=== PATIENT | female | born 1945 | race Caucasian/White ===

== ENCOUNTER 2016-10-26 11:57 | Emergency (ER) | payer MEDICARE, OTHER ==
[2016-10-26 12:32] LABS: Hemoglobin 13.4 gm/dL (12.5-16.0); Mean Cell Volume 91.1 fl (78-100); Mean Corpuscular Hemoglobin 29.8 pg (27-31); Mean Corpuscular Hgb Conc 32.7 g/dl (32-36); Mean Platelet Volume 9.6 fl (6.0-9.5); Neutrophil # 4.2 K/mm3 (1.3-6.0); Neutrophil % 54.4 % (42-75.0); Platelet Count 232 K/mm3 (150-450); Red Cell Distribution Width 13.3 % (11.5-14.0); White Blood Count 7.7 K/mm3 (4.0-10.5)
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
[2016-10-26 12:45] LABS: Albumin * 3.7 gm/dl (3.4-5.0); Anion Gap 12.5 mmol/L (6.8-13.8); BUN/Creatinine Ratio 14.8 (9.0-21.6); Bilirubin, Total 0.5 mg/dL (0.0-1.1); Ca. Corrected For Albumin 9.1 mg/dL (8.4-10.2); Calcium * 9.2 mg/dL (7.9-10.9); Carbon Dioxide 27.9 mmol/L (24-32.6); Potassium 4.4 mmol/L (3.4-4.6); Total Protein 7.5 gm/dL (6.2-8.2)
[2016-10-26 12:53] VITALS: BP 143/71
[2016-10-26] MEDS ORDERED: DIATRIZOATE MEGLU/DIATRIZO SOD 30 ML BTL PO ONE (12:55)
[2016-10-26] MEDS ORDERED: DIATRIZOATE MEGLU/DIATRIZO SOD 30 ML BTL ONE (12:58)
--- OUTSIDE RECORDS SUMMARY | 2016-10-26 13:09 | XMS REPORT | Continuity of Care Document ---
:1945 Author Organization [facility] ([facility]) Address [address] [place] [address] Phone [phone] Care Team Providers Name Role Phone Marquez Nowak Primary Care Provider [phone] Source Comments This disclosure is being made pursuant to the Care Everywhere program, applicable federal and state laws, and may not contain all informaitonavailable regarding this patient.[facility] ([facility]) Active Allergies and Adverse Reactions No Known Allergies Current Medications Prescription Sig. Disp. Refills Start Date End Date Status Calcium Take 1 Tab by mouth Active Carbonate-Vit daily. D3-Min (CALCIUM-VITAMIN D) 600 mg calcium- 400 unit Tab ALPRAZolam 0.5 mg Take 0.5 mg by mouth at Active tablet bedtime as needed. zolpiDEM 10 mg Take 10 mg by mouth at Active tablet bedtime as needed. dicyclomine 10 mg Take 10 mg by mouth 2 Active capsule times daily. diphenoxylate-atrop Take 1 Tab by mouth 2 45 Tab 1 01/13/2012 Active ine (LOMOTIL) times daily as needed. 2.5-0.025 mg per Indications: Diarrhea tablet Levothyroxine 100 Take 100 Tabs by mouth 60 Cap 6 04/21/2012 Active mcg Cap every morning before breakfast. Indications: HYPOTHYROIDISM simvastatin 20 mg Take 1 Tab by mouth every 60 Tab 6 04/21/2012 Active tablet evening. Indications: HYPERCHOLESTEROLEMIA meloxicam (MOBIC) Take 1 Tab by mouth 60 Tab 6 04/21/2012 Active 15 mg tablet daily. Indications: OSTEOARTHRITIS metoPROLol Take 1 Tab by mouth 60 Tab 6 04/21/2012 Active succinate 100 mg XL daily. Indications: tablet HYPERTENSION venlafaxine 75 mg Take 1 Cap by mouth 60 Cap 6 04/21/2012 Active XR capsule daily. Indications: MAJOR DEPRESSIVE DISORDER, NEUROPATHIC PAIN riFAXimin (XIFAXAN) Take 1 Tab by mouth 2 20 Tab 0 04/28/2012 Active 550 mg tablet times daily. Indications: bactaerial overgrowth citalopram 20 mg Take 1 Tab by mouth 30 Tab 1 04/28/2012 Active tablet daily. Indications: DEPRESSION omeprazole 20 mg Take 1 Cap by mouth daily 30 Cap 11 05/15/2012 Active extended release before dinner. 30 minutes capsule before meal Indications: GASTROESOPHAGEAL REFLUX Active Problems Problem Noted Date Chronic LBP 04/21/2012 Overview: 2/2 DDD HTN (hypertension) 04/21/2012 Advanced care planning; discussed 04/21/2012 OA (osteoarthritis) of knee 01/13/2012 Overview: Rt knee Generalized anxiety disorder 04/12/2008 Depressive disorder, not elsewhere classified 04/12/2008 Irritable bowel syndrome 04/12/2008 Unspecified hypothyroidism 04/12/2008 Asymptomatic varicose veins 04/12/2008 Resolved Problems Problem Noted Date Resolved Date Pain in joint, ankle and foot 04/12/2008 01/13/2012 Abdominal pain, unspecified site 04/12/2008 01/13/2012 Loss of weight 04/12/2008 01/13/2012 Immunizations Name Dates Previously Given Next Due Tdap 01/13/2012 Social History Tobacco Use Types Packs/Day Years Used Date Never Smoker Smokeless Tobacco: Never Used Alcohol Use Drinks/Week oz/Week Comments Yes glass of wine once in a while Last Filed Vital Signs Vital Sign Reading Time Taken Blood Pressure 142/73 04/21/2012 8:19 AM CDT Pulse 65 04/21/2012 8:19 AM CDT Temperature 37.7 C (99.9 F) 04/21/2012 8:19 AM CDT Respiratory Rate 16 03/24/2012 3:44 PM CDT Height 1.6 m (5' 3") 04/21/2012 8:19 AM CDT Weight 105.824 kg (233 lb 4.8 oz) 04/21/2012 8:27 AM CDT Body Mass Index 41.34 04/21/2012 8:27 AM CDT Oxygen Saturation 98% 03/24/2012 3:44 PM CDT Plan of Care Patient Goal Type Goal Diet Decrease soda or juice intake Weight Weight below 91 kg (200 lb) Health Maintenance Due Date Last Done Comments HCV Screening 1945 Hepatitis B Vaccine (1 of 3 - Primary 1945 Series) FOBT Colon Cancer Screening 1997 Zoster Vaccine 2007 Osteoporosis Screening (DXA Bone Density) 2012 Pneumococcal Vaccine (1 of 2 - PCV13) 2012 Mammogram 10/12/2013 10/12/2012, 04/21/2012 Influenza Vaccine: Seasonal (#1) 04/01/2016 Lipid Disorder Screening 01/12/2017 01/13/2012, 04/28/2008 Td Vaccine 01/12/2022 01/13/2012 Colonoscopy 03/24/2022 03/24/2012, 08/11/2008 Tdap Vaccine Completed 01/13/2012 Results from Last 3 Months Not on file
== END 2016-10-26 15:46 | disposition home or self-care (01) ==
LOC: ER 11:57
DX: K57.32 Diverticulitis of large intestine without perforation or abscess without bleeding (principal); E03.9 Hypothyroidism, unspecified; F41.8 Other specified anxiety disorders

== ENCOUNTER 2017-08-11 08:46 | Day surgery (SDC) | payer MEDICARE, MEDICAID ==
[~2017-08-11 08:46] MED LIST: ACETAMINOPHEN 325 MG TABLET PO PRN; ACETYLCHOLINE CHLORIDE 20 DROP KIT IO PRN; BUPIVACAINE HCL/PF 30 ML VIAL IJ PRN; CYCLOPENTOLATE HCL 20 DROP BTL LEFTEYE PRN; DEXTROSE 5%-0.5 NORMAL SALINE 1,000 ML IV PRN; EPINEPHrine 1 MG/ML AMPUL IO PRN; HYALURONATE SODIUM 0.4 ML DISP.SYRIN IO PRN; HYALURONATE SODIUM 0.85 ML DISP.SYRIN IO PRN; LIDOCAINE HCL/PF 200 MG/5 ML AMPUL TP PRN; LIDOCAINE HCL/PF 5 ML VIAL IO PRN; NORMAL SALINE 3 ML BOX IV PRN; TETRACAINE HCL 150 DROP BTL OP PRN
[2017-08-11] MEDS: TROPICAMIDE 150 DROP BTL LEFTEYE PRN ×3 (09:20→09:47)
[2017-08-11] MEDS: PHENYLEPHRINE HCL 50 DROP BTL LEFTEYE PRN ×3 (09:20→09:47)
[2017-08-11] MEDS ORDERED: DEXTROSE 5%-0.5 NORMAL SALINE 1,000 ML IV ONE (09:57)
[2017-08-11 11:58] VITALS: BP 125/78
== END 2017-08-11 08:47 | disposition home or self-care (01) ==
LOC: AMB 08:46
PROVIDERS: ATTEND Ophthalmology
PROC: 08RK3JZ Replacement of Left Lens with Synthetic Substitute, Percutaneous Approach (ICD-10-PCS; principal; 2017-08-11 10:05)
DX: H26.8 Other specified cataract (principal); E78.5 Hyperlipidemia, unspecified; E03.9 Hypothyroidism, unspecified; G20 Parkinson's disease; F41.8 Other specified anxiety disorders; E66.9 Obesity, unspecified; Z68.41 Body mass index [BMI] 40.0-44.9, adult

== ENCOUNTER 2017-09-08 07:25 | Day surgery (SDC) | payer MEDICARE, MEDICAID ==
[~2017-09-08 07:25] MED LIST changes: -CYCLOPENTOLATE HCL 20 DROP BTL LEFTEYE PRN; +CYCLOPENTOLATE HCL 20 DROP BTL RIGHTEYE PRN
[2017-09-08] MEDS: TROPICAMIDE 150 DROP BTL RIGHTEYE PRN ×3 (07:50→08:15)
[2017-09-08] MEDS: PHENYLEPHRINE HCL 50 DROP BTL RIGHTEYE PRN ×3 (07:50→08:15)
[2017-09-08 10:56] VITALS: BP 136/77
== END 2017-09-08 07:26 | disposition home or self-care (01) ==
LOC: AMB 07:25
PROVIDERS: ATTEND Ophthalmology
PROC: 08RJ3JZ Replacement of Right Lens with Synthetic Substitute, Percutaneous Approach (ICD-10-PCS; principal; 2017-09-08)
DX: E78.5 Hyperlipidemia, unspecified; E03.9 Hypothyroidism, unspecified; H26.8 Other specified cataract; G20 Parkinson's disease; Z68.41 Body mass index [BMI] 40.0-44.9, adult; E66.01 Morbid (severe) obesity due to excess calories; F41.8 Other specified anxiety disorders

== ENCOUNTER 2019-04-05 15:38 | Inpatient (IN) ==
--- NOTE | 2019-04-05 16:04 | ERNOTE ---
Abdominal HPI - General Chief Complaint: Constipation Time Seen by Provider: 04/05/19 15:54 Source: patient Exam Limitations: no limitations - Immun/Allergies/Home Medications Immunizatons: IMMUNIZATION HX Immunizations Up to Date Yes History of Influenza Vaccine No Hx Pneumococcal Vaccination No Allergies/Adverse Reactions: Allergies cephalexin Adverse Reaction (Mild, Verified 03/26/19 13:03) NAUSEA, DIZZINESS cortisone [Cortisone] Adverse Reaction (Mild, Verified 03/26/19 13:03) HYPERVENTILATED, CRYING, ANXIOUS pramipexole [From Mirapex] Adverse Reaction (Mild, Verified 03/26/19 13:03) TREMORS WORSEN Home Medications: HOME MEDICATIONS Chlorhexidine Gluconate [Peridex 0.12%] 15 ml MM BID PRN 08/05/17 [Last Taken Unknown] Melatonin/Pyridoxine HCl (B6) [Melatonin 5 mg Tablet] 1 ea PO HS 08/05/17 [Last Taken Unknown] levothyroxine 137 mcg tablet 137 mcg PO DAILY #90 tab 04/28/18 [Last Taken Unknown] azelaic acid 20 % topical cream 1 applic TP BID #50 g 05/18/18 [Last Taken Unknown] metronidazole 0.75 % topical gel 1 applic TP BID #45 g 08/03/18 [Last Taken Unknown] sennosides 8.6 mg-docusate sodium 50 mg tablet 2 tab PO HS #30 tab 08/18/18 [Last Taken Unknown] polyethylene glycol 3350 17 gram/dose oral powder 17 g PO DAILY #119 g 08/24/18 [Last Taken Unknown] nortriptyline 10 mg capsule See Rx Instructions .ROUTE .COMPLEX #30 unspecified 12/18/18 [Last Taken Unknown] escitalopram 10 mg tablet 10 mg PO DAILY #30 tab 01/27/19 [Last Taken Unknown] hydrocodone 5 mg-acetaminophen 325 mg tablet 1 tab PO Q6H PRN #28 tab 01/27/19 [Last Taken Unknown] omeprazole 20 mg capsule,delayed release 20 mg PO DAILY #30 cap 01/27/19 [Last Taken Unknown] simvastatin 10 mg tablet See Rx Instructions .ROUTE .COMPLEX #14 unspecified 02/11/19 [Last Taken Unknown] lubiprostone 24 mcg capsule See Rx Instructions .ROUTE .COMPLEX #60 unspecified 02/18/19 [Last Taken Unknown] bupropion HCl XL 150 mg 24 hr tablet, extended release 150 mg PO QAM #30 tab 02/26/19 [Last Taken Unknown] Meloxicam [Mobic] 15 mg PO DAILY #30 tab 03/07/19 [Last Taken Unknown] phentermine 37.5 mg tablet 37.5 mg PO DAILY #30 tab 03/26/19 [Last Taken Unknown] temazepam 15 mg capsule 15 mg PO HS PRN #30 cap 03/31/19 [Last Taken Unknown] alprazolam 0.5 mg tablet 0.5 mg PO DAILY PRN #30 tab 04/05/19 [Last Taken Unknown] - History of Present Illness Narrative: Patient states that she has been constipated for nearly a month. She does state the prior to that her stool started having almost a pencil thin-like appearance. She also states that the color appears to be somewhat different. She was given a bottle of GoLYTELY today and despite drinking all of it she has not had a bowel movement yet. She is still having some mild cramping-like feelings, although the stomach is much softer than it is been over the last 3 to 4 weeks Timing: constant Quality: moderate Activities at Onset: none Modifying Factors - (Improves): Absent: analgesics, antacids Modifying Factors - (Worsens): Absent: analgesics, antacids Associated Symptoms: Present: denies symptoms Prior Abdominal Problems: Present: similar symptoms Prior Treatment: Present: recently seen, treated by physician Review of Systems - Review of Systems Constitutional: Present: See HPI EYE: Present: no symptoms reported ENT: Present: no symptoms reported Respiratory: Present: no symptoms reported Cardiology: Present: no symptoms reported Gastrointestinal/Abdominal: Present: See HPI Genitourinary: Present: no symptoms reported Musculoskeletal: Present: no symptoms reported Skin: Present: no symptoms reported Neurological: Present: no symptoms reported Endocrine: Present: no symptoms reported Hematologic/Lymphatic: Present: no symptoms reported Psych: Present: no symptoms reported Medical History (Updated 04/05/19 @ 18:27 by Abimael Daugherty DO) Atrophic vaginitis (Chronic) Libido, decreased (Chronic) Emotional upset (Acute) Anxiety (Acute) Insomnia due to mental disorder (Chronic) Urinary incontinence (Chronic) Constipation (Chronic) 1. Increase the Amitiza to 24 mcg bid Hyperlipidemia (Chronic) Stage 3 chronic kidney disease (Chronic) Major depressive disorder (Chronic) Obesity (Chronic) Fatty infiltration of liver (Chronic) Acne rosacea (Suspected) Irritable bowel syndrome with constipation (Chronic) Obesity (BMI 30-39.9) Onset Date: ~09/25/14 BMI 09/25/2014 38.75 Urinary incontinence Onset Date: Unknown Anxiety and depression Onset Date: Unknown Chronic low back pain without sciatica Onset Date: Unknown Degenerative joint disease (DJD) of lumbar spine Onset Date: Unknown Diverticulitis Onset Date: ~11/11/17 Essential tremor Onset Date: ~06/26/16 Controlled Currently on Rx Hyperlipidemia due to dietary fat intake Onset Date: Unknown Hypothyroidism Onset Date: Unknown Irritable bowel syndrome Onset Date: Unknown With Constipation Surgical History: Surgical History (Updated 03/05/18 @ 15:31 by Kimberly Turner CMA) H/O sigmoidoscopy Onset Date: ~06/03/17 Hx of abdominal hysterectomy @ age 31; Partial Hx of appendectomy @ age 18 Hx of breast reduction, elective Onset Date: ~2000 Hx of cholecystectomy @age 18 Hx of colonoscopy @ [facility]: Incomplete Colonoscopy (could only go 20cm) No fixed structures or intraluminal masses, elongated/very tortous colon, mild diverticulitis Family History: Family History (Updated 03/05/18 @ 15:22 by Kimberly Turner CMA) Father , @ age 59 Hardening of the arteries of the brain History of intestine removal Amputation leg, bilat Mother , @ age 36 Explosion @ [employer] Sister , @ age 59 History of open heart surgery Grandfather , (Paternal) Myocardial infarction Grandfather Cancer (Maternal) Grandmother , (Maternal) Alzheimers disease Old age Social History: (Last Reviewed 04/05/19 @ 16:13 by Renetta Meyer RN) Social History: Marital status: household members: spouse number of children: 4 current occupational status: retired Highest education level completed: GED or equivalent Service: No Tobacco: Smoking Status: Never smoker Alcohol: alcohol intake: current Alcohol type: wine alcohol intake frequency: holiday/special occasion Substance Use: substance use type: does not use Dietary Habits: caffeine: Yes Physical Exam - Physical Exam General Appearance: Present: wd/wn, alert, mild distress Head Exam: Present: normal inspection, no evidence of injury Eye Exam: Normal inspection: bilateral, PERRL: bilateral Ears, Nose, Throat: Present: normal ENT inspection, H, normal pharynx Neck: Present: normal inspection, nontender Respiratory: Present: no respiratory distress, normal breath sounds, no accessory muscle use, chest nontender, lungs clear Cardiovascular/Chest: Present: regular rate, rhythm, no murmur, normal peripheral pulses Gastrointestinal/Abdominal: Present: normal bowel sounds, nondistended, soft, no organomegaly, tenderness - Mild generalized Rectal Exam: Present: deferred Back Exam: Present: normal inspection, normal range of motion Extremity Exam: Present: normal inspection, non-tender, no edema, normal range of motion Neurological Exam: Present: alert, oriented, normal mood/affect Skin Exam: Present: normal color, warm/dry Lymphatic Exam: Present: no adenopathy Progress - Vital Signs Patient's Vital Signs:: I have reviewed the patient's vital signs. Vital Signs: Vital Signs 04/05/19 15:47 Temperature 36.0 C Pulse Rate 94 Respiratory Rate 18 Blood Pressure 132/90 H O2 Sat by Pulse Oximetry 95 - X-Ray X-Ray #1 X-Ray: abdomen Interpretation: Reviewed by me - Progress/Reassessment Chief Complaint: Constipation Plan - Plan Plan: Patient is now unable to keep anything down due to this possible colon mass with significant narrowing of the sigmoid colon. Patient will be admitted for IV fluid and nausea control. Dr. Yari Larry has also been consulted for colonoscopy and will consider if there is a need for some form of bowel resection for the evolving obstruction. Departure Clinical Impression: Colonic mass Intractable nausea and vomiting Qualifiers: Vomiting type: unspecified Qualified Code(s): R11.2 - Nausea with vomiting, unspecified - Departure Disposition: Still a patient Condition: Fair Referrals: Christian Birmingham DO [Primary Care Provider] -
[2019-04-05 16:56] LABS: Hematocrit 41.2 % (37.0-47.0); Hemoglobin 13.6 gm/dL (12.5-16.0); Mean Cell Volume 93.4 fl (78-100); Mean Corpuscular Hemoglobin 30.8 pg (27-31); Mean Platelet Volume 8.9 fl (8-12.5); Neutrophil # 8.8 K/mm3 (1.3-6.0); Neutrophil % 76.6 % (42-75.0); Platelet Count 338 K/mm3 (150-450); Red Blood Count 4.41 M/mm3 (4.2-5.4); Red Cell Distribution Width 13.8 % (11.5-14.0); White Blood Count 11.4 K/mm3 (4.0-10.5)
[2019-04-05 17:18] LABS: Anion Gap 15.3 mmol/L (6.8-13.8); BUN/Creatinine Ratio 13.4 (9.0-21.6); Bilirubin, Total 0.4 mg/dL (0.0-1.1); Ca. Corrected For Albumin 10.2 mg/dL (8.4-10.2); Calcium * 9.7 mg/dL (7.9-10.9); Carbon Dioxide 27.2 mmol/L (24-32.6); Magnesium 2.2 mg/dL (1.2-2.8); Potassium 3.5 mmol/L (3.4-4.6); Total Protein 7.9 gm/dL (6.2-8.2)
[2019-04-05] MEDS ORDERED: ONDANSETRON HCL/PF 2 MG/ML VIAL IV ONE (18:22)
[2019-04-05] MEDS ORDERED: NORMAL SALINE 1,000 ML IV ONE (18:22)
[2019-04-05] MEDS ORDERED: LORazepam 2 MG/ML DISP.SYRIN IV ONE (18:40)
[2019-04-05] MEDS ORDERED: LORazepam 2 MG/ML DISP.SYRIN ONE (18:41)
[2019-04-05] MEDS ORDERED: PHENOL 180 SPRAY BTL MM PRN (20:51)
[2019-04-05] MEDS ORDERED: hydrALAZINE HCL 20 MG/ML VIAL IV PRN (21:18)
[2019-04-05] MEDS ORDERED: PROMETHAZINE HCL 25 MG SUPP.RECT RC PRN (21:35)
--- NOTE | 2019-04-05 21:37 | HP ---
Chief Complaint - Chief Complaint Date of Service: 04/05/19 Time of Service: 21:24 Chief Complaint: constipation, abdominal pain History of Present Illness: 73-year-old female presented to the emergency room today for nausea vomiting that began earlier following issues of constipation which has been ongoing for the last month. She endorses abdominal pain, nausea vomiting. She endorses changes in her stool. She denies fevers or chills. She has had multiple abdominal surgeries. Most recent colonoscopy was only able to advance 20 cm into the colon before it had to be abandoned. In the ER she received multiple treatments for constipation which did not resolve her problem. CT scan showed possible mass in her sigmoid colon. She was made n.p.o. with ice chips, NG tube was placed, she is admitted to the floor for possible abdominal mass versus advanced scar tissue. General surgery was consulted from the ER. Her vital signs are stable. Medical History (Updated 04/05/19 @ 18:27 by Abimael Daugherty DO) Atrophic vaginitis (Chronic) Libido, decreased (Chronic) Emotional upset (Acute) Anxiety (Acute) Insomnia due to mental disorder (Chronic) Urinary incontinence (Chronic) Constipation (Chronic) 1. Increase the Amitiza to 24 mcg bid Hyperlipidemia (Chronic) Stage 3 chronic kidney disease (Chronic) Major depressive disorder (Chronic) Obesity (Chronic) Fatty infiltration of liver (Chronic) Acne rosacea (Suspected) Irritable bowel syndrome with constipation (Chronic) Obesity (BMI 30-39.9) Onset Date: ~09/25/14 BMI 09/25/2014 38.75 Urinary incontinence Onset Date: Unknown Anxiety and depression Onset Date: Unknown Chronic low back pain without sciatica Onset Date: Unknown Degenerative joint disease (DJD) of lumbar spine Onset Date: Unknown Diverticulitis Onset Date: ~11/11/17 Essential tremor Onset Date: ~06/26/16 Controlled Currently on Rx Hyperlipidemia due to dietary fat intake Onset Date: Unknown Hypothyroidism Onset Date: Unknown Irritable bowel syndrome Onset Date: Unknown With Constipation Surgical History: Surgical History (Updated 03/05/18 @ 15:31 by Kimberly Turner CMA) H/O sigmoidoscopy Onset Date: ~06/03/17 Hx of abdominal hysterectomy @ age 31; Partial Hx of appendectomy @ age 18 Hx of breast reduction, elective Onset Date: ~2000 Hx of cholecystectomy @age 18 Hx of colonoscopy @ [facility]: Incomplete Colonoscopy (could only go 20cm) No fixed structures or intraluminal masses, elongated/very tortous colon, mild diverticulitis Family History: Family History (Updated 04/05/19 @ 19:56 by Sheila Alfred RN) Father , @ age 59 Hardening of the arteries of the brain Amputation leg, bilat History of intestine removal Mother , @ age 36 Explosion @ [employer] Sister , @ age 59 History of open heart surgery CVA (cerebral vascular accident), Onset Age: 68 Grandfather , (Paternal) Myocardial infarction Grandfather Cancer (Maternal) Grandmother , (Maternal) Alzheimers disease Old age Social History: (Last Reviewed 04/05/19 @ 19:56 by Sheila Alfred RN) Social History: Marital status: household members: spouse number of children: 4 current occupational status: retired Highest education level completed: GED or equivalent Service: No Tobacco: Smoking Status: Never smoker Alcohol: alcohol intake: current Alcohol type: wine alcohol intake frequency: holiday/special occasion Substance Use: substance use type: does not use Dietary Habits: caffeine: Yes Review Of Systems (GEN) - Review of Systems Generalized/Overall Review: Absent: Weakness, Chills, Fever EENTM: Present: No Symptoms Reported Respiratory: Present: Cough. Absent: Shortness of Breath, Orthopnea, Wheezing Cardiac: Absent: Chest Pain, Edema, Palpitations Abdominal: Present: Nausea, Vomiting, Abdominal Pain, Constipation Genitourinary: Present: No Symptoms Reported Musculoskeletal: Present: No Symptoms Reported Neurological: Present: No Symptoms Reported Skin: Present: No Symptoms Reported Endocrine: Present: No Symptoms Reported Immunizations: IMMUNIZATION HX Immunizations Up to Date Yes History of Influenza Vaccine No Hx Pneumococcal Vaccination No Allergies/Adverse Reactions: Allergies Allergy/AdvReac Type Severity Reaction Status Date / Time acetaminophen [From Tylenol] AdvReac Intermediate Other Verified 04/05/19 20:50 cephalexin AdvReac Mild NAUSEA, Verified 04/05/19 19:57 DIZZINESS cortisone [Cortisone] AdvReac Mild HYPERVENTILATED, Verified 04/05/19 19:57 CRYING, ANXIOUS pramipexole [From Mirapex] AdvReac Mild TREMORS Verified 04/05/19 19:57 WORSEN Home Medications: HOME MEDICATIONS Chlorhexidine Gluconate [Peridex 0.12%] 15 ml MM BID PRN 08/05/17 [Last Taken Unknown] levothyroxine 137 mcg tablet 137 mcg PO DAILY #90 tab 04/28/18 [Last Taken Unknown] azelaic acid 20 % topical cream 1 applic TP BID #50 g 05/18/18 [Last Taken Unknown] hydrocodone 5 mg-acetaminophen 325 mg tablet 1 tab PO Q6H PRN #28 tab 01/27/19 [Last Taken Unknown] bupropion HCl XL 150 mg 24 hr tablet, extended release 150 mg PO QAM #30 tab 02/26/19 [Last Taken Unknown] temazepam 15 mg capsule 15 mg PO HS PRN #30 cap 03/31/19 [Last Taken Unknown] Escitalopram Oxalate [Lexapro] 10 mg PO HS 04/05/19 [Last Taken Unknown] Lubiprostone [Amitiza] 24 mcg PO BID 04/05/19 [Last Taken Unknown] Melatonin 5 mg PO HS 04/05/19 [Last Taken Unknown] Nortriptyline HCl 10 mg PO HS 04/05/19 [Last Taken Unknown] Phentermine HCl [Adipex-P] 18.75 mg PO DAILY 04/05/19 [Last Taken Unknown] Polyethylene Glycol 3350 [Powderlax] 17 g PO HS 04/05/19 [Last Taken Unknown] Simvastatin 10 mg PO Q2D 04/05/19 [Last Taken Unknown] alprazolam 0.5 mg tablet 0.5 mg PO DAILY PRN #30 tab 04/05/19 [Last Taken Unknown] metroNIDAZOLE [Metrogel-Vaginal] 70 gm VAGINAL .ONCE WEEKLY 04/05/19 [Last Taken Unknown] omeprazole 20 mg capsule,delayed release 20 mg PO PRN PRN 04/05/19 [Last Taken Unknown] Exam - Exam Vital Signs: Vital Signs - Last Taken Temp 37.1 C 04/05/19 19:25 Pulse 80 04/05/19 19:30 Resp 16 04/05/19 19:30 BP 148/76 04/05/19 19:30 Pulse Ox 90 L 04/05/19 19:30 Constitutional: Present: Alert, Oriented x3, Cooperative, Mild distress - Improved since vomiting and NG tube placed ENT Exam: Present: hearing grossly normal, pharynx normal. Absent: nasal congestion, nasal drainage Eye Exam: bilateral eye: normal inspection, PERRL, EOMI Neck: Present: non-tender, supple Breasts: Present: Exam deferred Respiratory: Present: chest non-tender, crackles - Bilateral bases Cardiovascular/Chest: Present: normal peripheral pulses, regular rate, rhythm Abdomen: Present: soft, nondistended, tender, hypoactive /Rectal: Present: Exam deferred Skin Exam: Present: normal color, warm/dry Appearance: Present: appropriate appearance, appropriate insight, neat Eye contact: Present: cooperative, good eye contact Thoughts: Present: normal thought pattern, normal mood /affect Diagnostic Studies: Abnormal Lab Results 04/05/19 04/05/19 Range/Units 16:45 16:45 WBC 11.4 H (4.0-10.5) K/mm3 Immature Gran % (Auto) 0.50 H (0.001-0.429) % Immature Gran # (Auto) 0.06 H (0.000-0.0310) K/mm3 Neutrophils % 76.6 H (42-75.0) % Lymphocytes % 16.2 L (20-51) % Neutrophils # 8.8 H (1.3-6.0) K/mm3 Anion Gap 15.3 H (6.8-13.8) mmol/L Est GFR (Non-Af Amer) 48 L (60-130) mL/min Random Glucose 118 H (70-110) mg/dL ALT 11 L (19-67) U/L Alkaline Phosphatase 234 H (50-170) U/L Albumin 3.0 L (3.4-5.0) gm/dl Laboratory Results WBC 11.4 K/mm3 (4.0-10.5) H 04/05/19 16:45 RBC 4.41 M/mm3 (4.2-5.4) 04/05/19 16:45 Hgb 13.6 gm/dL (12.5-16.0) 04/05/19 16:45 Hct 41.2 % (37.0-47.0) 04/05/19 16:45 MCV 93.4 fl (78-100) 04/05/19 16:45 MCH 30.8 pg (27-31) 04/05/19 16:45 MCHC 33.0 g/dl (32-36) 04/05/19 16:45 RDW 13.8 % (11.5-14.0) 04/05/19 16:45 Plt Count 338 K/mm3 (150-450) 04/05/19 16:45 MPV 8.9 fl (8-12.5) 04/05/19 16:45 Immature Gran % (Auto) 0.50 % (0.001-0.429) H 04/05/19 16:45 Immature Gran # (Auto) 0.06 K/mm3 (0.000-0.0310) H 04/05/19 16:45 76.6 % (42-75.0) H 04/05/19 16:45 16.2 % (20-51) L 04/05/19 16:45 6.0 % (0.0-9) 04/05/19 16:45 0.4 % (0.0-3.0) 04/05/19 16:45 0.3 % (0.0-1.0) 04/05/19 16:45 Nucleated RBC % 0.0 k/mm3 (0-1) 04/05/19 16:45 8.8 K/mm3 (1.3-6.0) H 04/05/19 16:45 1.85 k/mm3 (1.5-3.5) 04/05/19 16:45 0.7 k/mm3 (0.0-1.0) 04/05/19 16:45 0.1 k/mm3 (0.0-0.7) 04/05/19 16:45 Absolute Basophils 0.0 k/mm3 (0.0-0.1) 04/05/19 16:45 Sodium 141 mmol/L (132-142) 04/05/19 16:45 141 mmol/L (130-142) 04/05/19 16:45 Potassium 3.5 mmol/L (3.4-4.6) 04/05/19 16:45 Chloride 102 mmol/L (97-106) 04/05/19 16:45 Carbon Dioxide 27.2 mmol/L (24-32.6) 04/05/19 16:45 15.3 mmol/L (6.8-13.8) H 04/05/19 16:45 BUN 16 mg/dL (3-23) 04/05/19 16:45 1.19 mg/dL (0.4-1.4) 04/05/19 16:45 Est GFR (Non-Af Amer) 48 mL/min (60-130) L 04/05/19 16:45 13.4 (9.0-21.6) 04/05/19 16:45 118 mg/dL (70-110) H 04/05/19 16:45 1.4 mmol/L (0.4-2.0) 04/05/19 16:45 Calcium 9.7 mg/dL (7.9-10.9) 04/05/19 16:45 Calcium Adj for Albumin 10.2 mg/dL (8.4-10.2) 04/05/19 16:45 Magnesium 2.2 mg/dL (1.2-2.8) 04/05/19 16:45 0.4 mg/dL (0.0-1.1) 04/05/19 16:45 AST 20 U/L (0-48) 04/05/19 16:45 ALT 11 U/L (19-67) L 04/05/19 16:45 234 U/L (50-170) H 04/05/19 16:45 7.9 gm/dL (6.2-8.2) 04/05/19 16:45 3.0 gm/dl (3.4-5.0) L 04/05/19 16:45 159 U/L (73-393) 04/05/19 16:45 Assessment/Plan - Narrative Narrative: Patient placed on the floor as inpatient for possible abdominal mass. NG tube placed and set to low intermittent suction. IV fluids running at 125 an hour of normal saline. Ice chips for comfort as well as Chloraseptic [place]. General surgery consulted from the ER. possible colonoscopy tomorrow versus exploratory surgery pending general surgery plan, appreciate their help. Patient's blood pressures mildly elevated, hydralazine ordered as needed for systolic greater than 160. chronic kidney disease is at patient's baseline. We will continue to monitor. Patient does have some crackles in her bases, incentive spirometry ordered. Rectal Phenergan ordered if needed for nausea though this has appeared to have resolved. SCDs for DVT prophylaxis. Patient n.p.o. vital signs are stable. Nurse to call with any questions or concerns. - Assessment/Plan (1) Colonic mass Problem: Acute (2) Intractable nausea and vomiting Problem: Acute Qualifiers: Vomiting type: unspecified Qualified Code(s): R11.2 - Nausea with vomiting, unspecified (3) Constipation Problem: Chronic (4) Obesity Problem: Chronic Qualifiers: (5) Anxiety Problem: Acute (6) Stage 3 chronic kidney disease Problem: Chronic
[2019-04-06] MEDS: MORPHINE SULFATE 4 MG/ML SYRG IV PRN ×3 (01:42→17:56)
[2019-04-06] MEDS: NORMAL SALINE 1,000 ML IV PRN ×2 (03:00→15:47)
[2019-04-06] MEDS ORDERED: MINERAL OIL 1 ENEMA BTL RC ONE (07:50)
[2019-04-06] MEDS: MINERAL OIL 1 ENEMA BTL RC PRN ×3 (08:47→13:13)
--- NOTE | 2019-04-06 08:58 | CONS ---
- Reason for consultation (1) Colonic mass Date of Service: 04/06/19 (2) Intractable nausea and vomiting Date of Service: 04/06/19 HPI - General Date of Service: 04/06/19 Source: patient Exam Limitations: no limitations - History of Present Illness Initial Comments: Marnie is a very pleasant 73-year-old female who came in through the emergency room yesterday. She has had constipation for the last month. Has noticed that her stools have become much smaller in caliber and are pencil thin. She had nausea and vomiting yesterday after she tried drinking GoLYTELY. She has been seen at the GI clinic in [place] due to her long-standing history of diarrhea. She has trouble with fecal incontinence and has to wear a pad. She is feeling much better this morning than she was yesterday. She had an attempted colonoscopy in 2017, this was incomplete. She has been eating well denies trouble with oral intake. Overall she feels much better today than she did yesterday. She denies a family history of colon cancer. She denies weight loss. Timing/Duration: changing over time Severity: mild Modifying Factors - (Improves): Reports: other - NG tube decompression Associated Symptoms: nausea, vomiting Allergies/Adverse Reactions: Allergies acetaminophen [From Tylenol] Adverse Reaction (Intermediate, Verified 04/05/19 20:50) Other Upsets patient's stomach cephalexin Adverse Reaction (Mild, Verified 04/05/19 19:57) NAUSEA, DIZZINESS cortisone [Cortisone] Adverse Reaction (Mild, Verified 04/05/19 19:57) HYPERVENTILATED, CRYING, ANXIOUS pramipexole [From Mirapex] Adverse Reaction (Mild, Verified 04/05/19 19:57) TREMORS WORSEN Home Medications: Home Medications Medication Instructions Recorded Last Taken Chlorhexidine Gluconate [Peridex 15 ml MM BID PRN 08/05/17 Unknown 0.12%] levothyroxine 137 mcg tablet 137 mcg PO DAILY #90 tab 04/28/18 Unknown azelaic acid 20 % topical cream 1 applic TP BID #50 g 05/18/18 Unknown hydrocodone 5 mg-acetaminophen 325 1 tab PO Q6H PRN #28 tab 01/27/19 Unknown mg tablet bupropion HCl XL 150 mg 24 hr 150 mg PO QAM #30 tab 02/26/19 Unknown tablet, extended release temazepam 15 mg capsule 15 mg PO HS PRN #30 cap 03/31/19 Unknown Escitalopram Oxalate [Lexapro] 10 mg PO HS 04/05/19 Unknown Lubiprostone [Amitiza] 24 mcg PO BID 04/05/19 Unknown Melatonin 5 mg PO HS 04/05/19 Unknown Nortriptyline HCl 10 mg PO HS 04/05/19 Unknown Phentermine HCl [Adipex-P] 18.75 mg PO DAILY 04/05/19 Unknown Polyethylene Glycol 3350 17 g PO HS 04/05/19 Unknown [Powderlax] Simvastatin 10 mg PO Q2D 04/05/19 Unknown alprazolam 0.5 mg tablet 0.5 mg PO DAILY PRN #30 tab 04/05/19 Unknown metroNIDAZOLE [Metrogel-Vaginal] 70 gm VAGINAL .ONCE WEEKLY 04/05/19 Unknown omeprazole 20 mg capsule,delayed 20 mg PO PRN PRN 04/05/19 Unknown release Open cholecystectomy Open hysterectomy Medications - Medications Current Medications: Current Medications Sodium Chloride (Sodium Chloride 0.9%) 1,000 mls @ 100 mls/hr IV .Q10H PRN PRN Reason: HYDRATION Stop: 05/06/19 03:19 Last Admin: 04/06/19 03:00 Dose: 100 mls/hr Documented by: Mineral Oil (Fleet Mineral Oil Enema) 1 enema RC Q2H PRN PRN Reason: UNTIL CLEAR Stop: 04/06/19 23:59 Last Admin: 04/06/19 08:47 Dose: 1 enema Documented by: Morphine Sulfate (Morphine Sulfate) 4 mg IV Q4H PRN PRN Reason: Pain Stop: 05/06/19 01:31 Last Admin: 04/06/19 07:57 Dose: 4 mg Documented by: Phenol/Menthol (Chloraseptic) 0 spray MM PRN PRN PRN Reason: Sore Throat Stop: 05/05/19 20:52 Last Admin: 04/05/19 23:07 Dose: 1 spray Documented by: Review of Systems - Review of Systems Generalized/Overall Review: Present: Malaise. Absent: Weight loss, Weight gain EENTM: Present: No Symptoms Reported Respiratory: Present: No Symptoms Reported Cardiac: Present: No Symptoms Reported Abdominal: Present: Nausea, Vomiting, Abdominal Pain, Constipation, Diarrhea Genitourinary: Present: No Symptoms Reported Musculoskeletal: Present: No Symptoms Reported Neurological: Present: No Symptoms Reported Skin: Present: No Symptoms Reported Endocrine: Present: No Symptoms Reported Physical Examination - Exam Vital Signs: Vital Signs - Last Taken Temp 36.8 C 04/06/19 06:44 Pulse 77 04/06/19 06:44 Resp 18 04/06/19 06:44 BP 149/74 04/06/19 06:44 Pulse Ox 96 04/06/19 06:44 O2 Oxygen Delivery Method Room Air Constitutional: Present: Oriented x3, Obese Neck: Present: supple, trachea midline Breasts: Present: Exam deferred Respiratory: Present: lungs clear, normal breath sounds Cardiovascular/Chest: Present: regular rate, rhythm Abdomen: Present: Normal bowel sounds, soft, no masses, obese /Rectal: Present: rectal mass Extremity: Present: normal range of motion Skin Exam: Present: normal color Neurologic: Present: furniture sander II-XII nml as tested Appearance: Present: appropriate appearance Eye contact: Present: cooperative, good eye contact Thoughts: Present: normal thought pattern - Results and Findings: Lab/Microbiology results last 24 hrs: Abnormal/Pending Laboratory Last 24 HRS 04/05/19 04/05/19 16:45 16:45 WBC 11.4 H Immature Gran % (Auto) 0.50 H Immature Gran # (Auto) 0.06 H Neutrophils % 76.6 H Lymphocytes % 16.2 L Neutrophils # 8.8 H Anion Gap 15.3 H Est GFR (Non-Af Amer) 48 L Random Glucose 118 H ALT 11 L Alkaline Phosphatase 234 H Albumin 3.0 L - Assessments/Findings (1) Colonic mass Problem: Acute (2) Intractable nausea and vomiting Problem: Acute Qualifiers: Vomiting type: unspecified Qualified Code(s): R11.2 - Nausea with vomiting, unspecified Plan - Plan Plan: CEA ordered Enemas ordered, will attempt colonoscopy this afternoon to obtain biopsies and visualization This is a very low mass and she already has incontinence problems. She may need a colorectal surgeon. She needs a CT scan with contrast to evaluate for metastatic disease, continue with IV hydration NG tube for decompression
--- NOTE | 2019-04-06 09:54 | ANES ---
Anesthesia Pre Procedure Eval Vitals/Labs: Last Vital Signs Temp 36.8 C 04/06/19 06:44 Pulse 77 04/06/19 06:44 Resp 18 04/06/19 06:44 BP 149/74 04/06/19 06:44 Pulse Ox 96 04/06/19 06:44 HOME MEDICATIONS Chlorhexidine Gluconate [Peridex 0.12%] 15 ml MM BID PRN 08/05/17 [Last Taken Unknown] levothyroxine 137 mcg tablet 137 mcg PO DAILY #90 tab 04/28/18 [Last Taken Unknown] azelaic acid 20 % topical cream 1 applic TP BID #50 g 05/18/18 [Last Taken Unknown] hydrocodone 5 mg-acetaminophen 325 mg tablet 1 tab PO Q6H PRN #28 tab 01/27/19 [Last Taken Unknown] bupropion HCl XL 150 mg 24 hr tablet, extended release 150 mg PO QAM #30 tab 02/26/19 [Last Taken Unknown] temazepam 15 mg capsule 15 mg PO HS PRN #30 cap 03/31/19 [Last Taken Unknown] Escitalopram Oxalate [Lexapro] 10 mg PO HS 04/05/19 [Last Taken Unknown] Lubiprostone [Amitiza] 24 mcg PO BID 04/05/19 [Last Taken Unknown] Melatonin 5 mg PO HS 04/05/19 [Last Taken Unknown] Nortriptyline HCl 10 mg PO HS 04/05/19 [Last Taken Unknown] Phentermine HCl [Adipex-P] 18.75 mg PO DAILY 04/05/19 [Last Taken Unknown] Polyethylene Glycol 3350 [Powderlax] 17 g PO HS 04/05/19 [Last Taken Unknown] Simvastatin 10 mg PO Q2D 04/05/19 [Last Taken Unknown] alprazolam 0.5 mg tablet 0.5 mg PO DAILY PRN #30 tab 04/05/19 [Last Taken Unknown] metroNIDAZOLE [Metrogel-Vaginal] 70 gm VAGINAL .ONCE WEEKLY 04/05/19 [Last Taken Unknown] omeprazole 20 mg capsule,delayed release 20 mg PO PRN PRN 04/05/19 [Last Taken Unknown] Allergies/Adverse Reactions: Allergies Allergy/AdvReac Type Severity Reaction Status Date / Time acetaminophen [From Tylenol] AdvReac Intermediate Other Verified 04/05/19 20:50 cephalexin AdvReac Mild NAUSEA, Verified 04/05/19 19:57 DIZZINESS cortisone [Cortisone] AdvReac Mild HYPERVENTILATED, Verified 04/05/19 19:57 CRYING, ANXIOUS pramipexole [From Mirapex] AdvReac Mild TREMORS Verified 04/05/19 19:57 WORSEN - Planned Procedure Planned Procedure: colonoscopy Medication List Reviewed:: Yes Allergies Verified: Yes Medical History (Updated 04/05/19 @ 21:37 by Juan Estevez DO) Atrophic vaginitis (Chronic) Libido, decreased (Chronic) Emotional upset (Acute) Anxiety (Acute) Insomnia due to mental disorder (Chronic) Urinary incontinence (Chronic) Constipation (Chronic) 1. Increase the Amitiza to 24 mcg bid Hyperlipidemia (Chronic) Stage 3 chronic kidney disease (Chronic) Major depressive disorder (Chronic) Obesity (Chronic) Fatty infiltration of liver (Chronic) Acne rosacea (Suspected) Irritable bowel syndrome with constipation (Chronic) Obesity (BMI 30-39.9) Onset Date: ~09/25/14 BMI 09/25/2014 38.75 Urinary incontinence Onset Date: Unknown Anxiety and depression Onset Date: Unknown Chronic low back pain without sciatica Onset Date: Unknown Degenerative joint disease (DJD) of lumbar spine Onset Date: Unknown Diverticulitis Onset Date: ~11/11/17 Essential tremor Onset Date: ~06/26/16 Controlled Currently on Rx Hyperlipidemia due to dietary fat intake Onset Date: Unknown Hypothyroidism Onset Date: Unknown Irritable bowel syndrome Onset Date: Unknown With Constipation Surgical History (Updated 04/05/19 @ 21:37 by Juan Estevez DO) H/O sigmoidoscopy Onset Date: ~06/03/17 Hx of abdominal hysterectomy @ age 31; Partial Hx of appendectomy @ age 18 Hx of breast reduction, elective Onset Date: ~2000 Hx of cholecystectomy @age 18 Hx of colonoscopy @ [facility]: Incomplete Colonoscopy (could only go 20cm) No fixed structures or intraluminal masses, elongated/very tortous colon, mild diverticulitis Family History (Updated 04/05/19 @ 19:56 by Sheila Alfred RN) Father , @ age 59 Hardening of the arteries of the brain Amputation leg, bilat History of intestine removal Mother , @ age 36 Explosion @ [employer] Sister , @ age 59 History of open heart surgery CVA (cerebral vascular accident), Onset Age: 68 Grandfather , (Paternal) Myocardial infarction Grandfather Cancer (Maternal) Grandmother , (Maternal) Alzheimers disease Old age - Family Anesthesia History Family History:: no untoward family reactions to anesthesia, no familial bleeding tendencies, no family history of clotting disorders, no family history of premature - Airway/Neck/Teeth Within Normal Limits:: Yes Denture Type: Full upper, Full lower Mallampatti Score: 3 Thyromental (T-M) distance: > 6 cm Mandibulo Hyoid distance: > 3 cm - Respiratory Respiratory Physical: crackles Smoking Status: Never smoker Discussed smoking cessation including day of surgery: No Sleep Apnea currently treated: No Sleep Apnea by current assessment: No Discussed Risks/Treatment of ORLIN: No - Cardiovascular Tolerate Activity: Fair Heart Sounds: S1 & S2, Regular - Anesthesia Assessment and Plan ASA Class: PS, III, E Anesthesia Type Plan: General ET
--- NOTE | 2019-04-06 13:09 | PN ---
Van Note - Interim Date: 04/06/19 Time: 13: Narrative: 04/06/19 13:06 Marnie Barrera is medically approved for her planned Lower endoscopy by Dr. Larry.
[2019-04-06] MEDS ORDERED: RINGER'S SOLUTION,LACTATED 1,000 ML IV PRN (14:09)
--- NOTE | 2019-04-06 14:14 | OR ---
Operative Report - Dictated Report Narrative: Date of Service: 04/06/19 Procedure: Diagnostic colonoscopy Pre-procedure diagnosis: Colon mass Post-procedure diagnosis: Colon mass at 10 cm Surgeon: Dr. Yari Larry D.O. Anesthesia: General Indication for procedure: Constipation, colon mass Description of procedure: After appropriate informed consent was obtained, patient was taken to the OR placed in the left lateral decubitus position. Monitors were applied, appropriate sedation was achieved. A digital rectal exam was done which showed a rectal mass. A lubricated colonoscope was inserted and advanced to the mass this was circumferential. The scope could be advanced past this area but the colon was unprepped and I was unable to visualize. Multiple cold biopsies were taken of the colon mass. This appeared consistent with a malignancy. Complications: none Specimens to pathology: 10 cm colon biopsies Estimated blood loss: minimal Prep quality: Prep was not completed Disposition: Await results of the biopsies, patient will likely need to transfer to a tertiary care center due to the low nature of the mass.
--- NOTE | 2019-04-06 14:25 | ANES ---
Post Anesthesia Discharge - Transfer of Care Transfer of Care handoff given to nurse: Yes - Discharge from PACU Discharge from PACU when meets criteria: Yes - Comfortable in PACU.
--- NOTE | 2019-04-06 18:25 | PN ---
Subjective - Date and Time Seen Date: 04/06/19 Time: 12:50 Subjective Narrative: Marnie Galvin was admitted yesterday with a bowel obstruction with nausea and vomiting. She has a lesion in the sigmoid colon area per CT scan. Dr. Webb was asked to consult and actually scoped her today. The lesion is only about 10 cm from the anal verge and is an apple core lesion that is circumferential. She recommends that I transfer Marnie to the [facility] for oncological surgery. I have started the transfer process. At this time [facility] has no beds. We have managed to get her into the triage process and they will let us know when they have a room. I will need to speak with the super triage medical reviewer probably tomorrow as he leaves at 6:00 tonight. It appears that she will still be with us until tomorrow some time. I have spoken with Marnie this evening and told her about her tumor and that she would need to go to the [facility] to have a surgery done there. She understands. She will need to have a metastatic work-up done and after going to be more than tomorrow getting it done I will get a PET scan done tomorrow. If they are going to be able to accept her in transfer tomorrow then I will let them do the metastatic work-up there. Liver enzymes are normal except alkaline phosphatase which is elevated.. I have also discussed the possibility of a permanent colostomy or ileostomy depending on her surgery and metastatic work-up findings. The only distress that Marnie is in is swallowing around the NG tube that is quite painful. She has an anesthetizing spray that she can use. Her nausea and vomiting stopped with decompression of the abdomen with NG tube. She has not had any more nausea or vomiting. She is now requesting to have sips of water instead of just ice chips. I will allow that. Objective - Review of Systems Generalized/Overall Review: Reports: Weakness, Malaise EENTM: Reports: No Symptoms Reported Respiratory: Reports: No Symptoms Reported Cardiac: Reports: No Symptoms Reported Abdominal: Reports: Abdominal Pain, Constipation. Denies: Nausea, Vomiting, Hematemesis, Melena, Bright blood from rectum Genitourinary Symptoms: Reports: No Symptoms Reported Musculoskeletal Complaints: Reports: No Symptoms Reported Neurological: Reports: No Symptoms Reported Skin: Reports: No Symptoms Reported Endocrine: Reports: No Symptoms Reported Misc: All systems neg except as marked - Vitals Vitals: Last Vital Signs Temp 37.3 C 04/06/19 14:40 Pulse 102 H 04/06/19 14:40 Resp 22 H 04/06/19 14:40 BP 143/77 04/06/19 14:40 Pulse Ox 93 04/06/19 14:40 - EKG/Xray Findings EKG read: Reviewed by me XRAY: abdomen Interpretation: Reviewed by me - Exam Constitutional: Present: Alert, Oriented x3, Cooperative, Well developed, Well nourished, No distress ENT Exam: Present: normal ENT inspection, hearing grossly normal, pharynx normal, TMs normal Neck: Present: non-tender, full range of motion, supple, normal inspection Breasts: Present: Exam deferred, Nontender Respiratory: Present: chest non-tender, lungs clear, normal breath sounds, no respiratory distress, no accessory muscle use Cardiovascular/Chest: Present: normal peripheral pulses, regular rate, rhythm, no chest tenderness, no edema, no gallop, no JVD, no murmur, no rub Abdomen: Present: soft, nondistended, no rebound tenderness, no hepatospenomegaly, no masses, tender - Right and left lower quadrants, mass palpable - Left lower quadrant, hypoactive. Absent: distended - Has an NG tube in place that is decompressed the abdomen. /Rectal: Present: Exam deferred, External genitalia normal Extremity: Present: normal range of motion, non-tender, normal inspection, no pedal edema, no calf tenderness, normal capillary refill Skin Exam: Present: normal color, warm/dry, no cyanosis Lymphatic: Present: no adenopathy Neurologic: Present: director of student life II-XII nml as tested Appearance: Present: appropriate appearance, appropriate insight, neat, no memory impairment Eye contact: Present: cooperative, good eye contact, normal speech Thoughts: Present: normal thought pattern, no apparent hallucination Assessment/Plan Plan Narrative: 1. Work on making transfer arrangements to the [facility] for surgical management of her colon cancer 2. If transfer is going to be delayed and I will start the metastatic work-up here with a PET scan tomorrow. 3. Alkaline phosphatase isoenzymes 4. Dr. Larry has ordered a CEA. 5. Allow sips of water. 6. Consider clamping the NG tube tomorrow to see if she redevelops any nausea or vomiting or abdominal distention. If not consider cathartics to start cleaning out her colon per NG tube and also start protein feedings through the NG tube. - Problems/Diagnosis (1) Intractable nausea and vomiting Problem: Acute Qualifiers: Vomiting type: unspecified Qualified Code(s): R11.2 - Nausea with vomiting, unspecified Narrative: Controlled with NG tube decompression of the abdomen (2) Colonic mass Problem: Acute Narrative: Circumferential apple core lesion 10 cm from the anal verge. Biopsy was done today by Dr. 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
[2019-04-06] MEDS ORDERED: LORazepam 2 MG/ML DISP.SYRIN IV SCH (18:30)
[2019-04-06] MEDS ORDERED: LORazepam 2 MG/ML DISP.SYRIN IV PRN (18:33)
[2019-04-06] MEDS: PANTOPRAZOLE SODIUM 40 MG in NORMAL SALINE 100 ML IV SCH (20:50)
[2019-04-07] MEDS: MORPHINE SULFATE 4 MG/ML SYRG IV PRN ×2 (00:23→06:49)
[2019-04-07] MEDS: NORMAL SALINE 1,000 ML IV PRN ×2 (02:15→13:21)
[2019-04-07] MEDS: PANTOPRAZOLE SODIUM 40 MG in NORMAL SALINE 100 ML IV SCH (06:49)
--- NOTE | 2019-04-07 12:02 | DS ---
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 She presented to ER with intractable nausea and vomiting, abdominal distention and abdominal pain. The work-up in the emergency room included a CT scan that detected a tumor in the sigmoid colon area. An NG tube was placed. She was given some IV fluids and pain medication and admitted. The NG tube did an excellent job of decompressing the gut and she is much more comfortable. The nausea and vomiting stopped with decompression as well. Dr. Larry took her to the OR yesterday and found the tumor at 10 cm from the anal verge. Is a circumferential apple core lesion. I spoke with Marnie about this tumor and that is probably malignant. I also told her its location and that it needed to be resected but there might not be enough rectal cuff remaining to do an end and anastomosis and she may end up with either colostomy or ileostomy. She is been handling ice chips and sips of water well. We have held all of her oral medications. Her blood pressure has been okay without her blood pressure medicine. I spoke with [facility] last night about a transfer and she was placed on their transfer waitlist. This morning case management tells me that she needs to go to [facility] because it is the closest available facility that can manage her problems. I have spoken with at [facility]. He is the hospitalist who will receive her and is agreed to accept her in transfer. I reviewed the chart with him and relayed pertinent lab information. A CEA has been ordered as well as alkaline phosphatase isoenzymes but they are send out test and will be several days getting back. Marnie is amenable to going to [facility]. Consultation Done:: Dr. Larry Procedures Performed: see notes below Procedures: Limited colonoscopy with biopsies - Results and Findings Results and Findings: Laboratory Results - last 24 hr 04/06/19 14:16 Pathology Specimen Spec to path - Medications Medications: Active Medications Sodium Chloride (Sodium Chloride 0.9%) 1,000 mls @ 100 mls/hr IV .Q10H PRN PRN Reason: HYDRATION Stop: 05/06/19 03:19 Last Admin: 04/07/19 02:15 Dose: 100 mls/hr Documented by: Pantoprazole Sodium 40 mg/ (Sodium Chloride) 100 mls @ 400 mls/hr IV Q12H CHRIS Stop: 05/06/19 18:46 Last Admin: 04/07/19 06:49 Dose: 400 mls/hr Documented by: Lorazepam (Ativan) 1 mg IV Q4H PRN PRN Reason: Anxiety Stop: 05/06/19 18:31 Last Admin: 04/06/19 19:43 Dose: 1 mg Documented by: Morphine Sulfate (Morphine Sulfate) 4 mg IV Q4H PRN PRN Reason: Pain Stop: 05/06/19 01:31 Last Admin: 04/07/19 06:49 Dose: 4 mg Documented by: Phenol/Menthol (Chloraseptic) 0 spray MM PRN PRN PRN Reason: Sore Throat Stop: 05/05/19 20:52 Last Admin: 04/05/19 23:07 Dose: 1 spray Documented by: Discontinued Medications Sodium Chloride (Sodium Chloride 0.9%) 1,000 mls @ 125 mls/hr IV .Q8H ONE Stop: 04/06/19 02:21 Last Infusion: 04/06/19 02:46 Dose: Infused Documented by: Lactated Ringer's (Lactated Ringers) 1,000 mls @ 250 mls/hr IV .Q4H PRN PRN Reason: HYDRATION Stop: 05/06/19 14:10 Last Admin: 04/06/19 13:45 Dose: 250 mls/hr Documented by: Lorazepam (Ativan) 1 mg IV ONCE ONE Stop: 04/05/19 18:41 Last Admin: 04/05/19 18:43 Dose: 1 mg Documented by: Lorazepam (Ativan) 1 mg IV Q4H CHRIS Stop: 05/06/19 18:31 Last Admin: 04/06/19 21:49 Dose: Not Given Documented by: Mineral Oil (Fleet Mineral Oil Enema) 1 enema RC ONCE ONE Stop: 04/06/19 07:51 Last Admin: 04/06/19 08:52 Dose: Not Given Documented by: Mineral Oil (Fleet Mineral Oil Enema) 1 enema RC Q2H PRN PRN Reason: UNTIL CLEAR Stop: 04/06/19 23:59 Last Admin: 04/06/19 13:13 Dose: 1 enema Documented by: Ondansetron HCl (Zofran) 4 mg IV ONCE ONE Stop: 04/05/19 18:23 Last Admin: 04/05/19 18:49 Dose: 4 mg Documented by: - Disposition Disposition: Short Term Hospital Inpatient Condition: Fair Discharge Date: 04/07/19 Discharge Time: 11:59
[2019-04-07 12:32] LABS: Hematocrit 35.3 % (37.0-47.0); Mean Cell Volume 97.2 fl (78-100); Mean Corpuscular Hemoglobin 30.3 pg (27-31); Mean Corpuscular Hgb Conc 31.2 g/dl (32-36); Neutrophil # 8.3 K/mm3 (1.3-6.0); Neutrophil % 73.5 % (42-75.0); Platelet Count 254 K/mm3 (150-450); Red Blood Count 3.63 M/mm3 (4.2-5.4); Red Cell Distribution Width 14.4 % (11.5-14.0); White Blood Count 11.4 K/mm3 (4.0-10.5)
[2019-04-07 12:40] LABS: Anion Gap 13.4 mmol/L (6.8-13.8); BUN/Creatinine Ratio 12.1 (9.0-21.6); Bilirubin, Total 0.4 mg/dL (0.0-1.1); Ca. Corrected For Albumin 9.9 mg/dL (8.4-10.2); Calcium * 8.6 mg/dL (7.9-10.9); Carbon Dioxide 20.4 mmol/L (24-32.6); Potassium 3.8 mmol/L (3.4-4.6); Total Protein 5.9 gm/dL (6.2-8.2)
[2019-04-07 14:37] VITALS: BP 137/79
== END 2019-04-07 14:10 | disposition short-term general hospital (02) | DRG 375 ==
LOC: MS 15:38 → ER 15:38 → OBSVTOIN 18:34 → MS 19:30
PROVIDERS: ADMIT Family Medicine; ATTEND Family Medicine
DX: K56.690 Other partial intestinal obstruction; F41.9 Anxiety disorder, unspecified; R11.2 Nausea with vomiting, unspecified; N18.3 Chronic kidney disease, stage 3 (moderate); E66.9 Obesity, unspecified; D49.0 Neoplasm of unspecified behavior of digestive system; Z68.37 Body mass index [BMI] 37.0-37.9, adult; M54.5 Low back pain; K62.89 Other specified diseases of anus and rectum; E03.9 Hypothyroidism, unspecified; R74.8 Abnormal levels of other serum enzymes
CPT/HCPCS: 36415; 71010; 71045; 74019; 74020; 74176; 80053; 82378; 83605; 83690; 83735; 84080; 85025; 88305; 96361; 96374; 96375; 99285; G0378; J2405